=== PATIENT | male | born 1970 | race Hispanic/Latino ===

== ENCOUNTER 2018-07-19 18:43 | Emergency (ER) | payer OTHER | END 2018-07-19 19:07 | disposition home or self-care (01) | LOC: ERS 18:43 | DX: S91.011D Laceration without foreign body, right ankle, subsequent encounter (principal); E11.9 Type 2 diabetes mellitus without complications; E78.5 Hyperlipidemia, unspecified; I10 Essential (primary) hypertension ==

== ENCOUNTER 2025-05-27 14:55 | Inpatient (IN) | payer OTHER, SELFPAY ==
[~2025-05-27 14:55] MED LIST: Iopamidol-370 76% 500 ML MDV (1 ML CHARGE) ONE
[2025-05-27 17:49] LABS: #Basophils 0.05 10x3/uL (0.0-0.2); #Eosinophils 0.04 10x3/uL (0.0-0.7); #Monocytes 1.39 10x3/uL (0.11-0.59); #Neutrophils 18.10 10x3/uL (1.40-6.50); %Basophils 0.2 % (0.0-1.0); %Eosinophils 0.2 % (0.0-10.0); %Lymphocytes 7.4 % (21.0-51.0); %Monocytes 6.4 % (0.0-10.0); %Neutrophils 83.0 % (42.0-75.0); Hematocrit 30.5 % (42.0-52.0); Hemoglobin 10.4 g/dL (14.0-18.0); Mean Corpuscular Hemoglobin 33.0 pg (27.0-31.0); Mean Corpuscular Volume 96.8 fL (78.0-98.0); Platelet Count 426 10x3/uL (130-400); Red Blood Cell (RBC) Count 3.15 mill/uL (4.70-6.10); White Blood Cell (WBC) Count 21.81 10x3/uL (4.8-10.8)
[2025-05-27 18:05] LABS: ALT (SGPT) 12 U/L (Less than 45); AST (SGOT) 34 U/L (11-34); Albumin 2.1 g/dL (3.1-4.5); Alkaline Phosphatase 202 U/L (40-110); Anion Gap 15 mmol/L (10-20); BUN (Urea Nitrogen) 11 mg/dL (8.4-25.7); Bilirubin, Total 0.8 mg/dL (0.3-1.2); Calc. Creatinine Clearance 0 mL/min (70-130); Calcium 8.7 mg/dL (7.8-10.44); Carbon Dioxide 23 mmol/L (22-29); Chloride 100 mmol/L (98-107); Globulin 4.3 g/dL (2.4-3.5); Glucose 186 mg/dL (70-105); Lipase 10 U/L (8-78); Potassium 3.9 mmol/L (3.5-5.1); Sodium 134 mmol/L (136-145)
[2025-05-27] MEDS ORDERED: Ketorolac Tromethamine 30 MG (1 mL) VIAL ONE (18:45)
[2025-05-27] MEDS ORDERED: Ondansetron PF 4 MG/2 ML Vial ONE (18:45)
[2025-05-27] MEDS ORDERED: VANCOMYCIN 2 GRAM/400 ML BAG 400 ML ONE (21:04)
[2025-05-27] MEDS ORDERED: hydrALAZINE 20 MG/ML VIAL SLOW IVP PRN (22:02)
[2025-05-27] MEDS ORDERED: Methocarbamol 500 MG TAB PO PRN (22:02)
[2025-05-27] MEDS ORDERED: Glucagon 1 MG/ML KIT IM PRN (22:02)
[2025-05-27] MEDS ORDERED: Dextrose 50% Abboject 50 ML SYRINGE SLOW IVP PRN (22:02)
[2025-05-27] MEDS ORDERED: Ondansetron PF 4 MG/2 ML Vial IVP PRN (22:02)
[2025-05-27] MEDS ORDERED: Acetaminophen 325 MG TAB PO PRN (22:02)
[2025-05-28 02:37] VITALS: BMI 26.9
[2025-05-28 04:13] LABS: #Basophils 0.07 10x3/uL (0.0-0.2); #Eosinophils 0.15 10x3/uL (0.0-0.7); #Monocytes 1.32 10x3/uL (0.11-0.59); #Neutrophils 15.52 10x3/uL (1.40-6.50); %Basophils 0.4 % (0.0-1.0); %Eosinophils 0.8 % (0.0-10.0); %Lymphocytes 6.6 % (21.0-51.0); %Monocytes 7.0 % (0.0-10.0); %Neutrophils 81.9 % (42.0-75.0); Hematocrit 26.2 % (42.0-52.0); Hemoglobin 9.4 g/dL (14.0-18.0); Mean Corpuscular Hemoglobin 33.7 pg (27.0-31.0); Mean Corpuscular Volume 93.9 fL (78.0-98.0); Platelet Count 395 10x3/uL (130-400); Red Blood Cell (RBC) Count 2.79 mill/uL (4.70-6.10); White Blood Cell (WBC) Count 18.95 10x3/uL (4.8-10.8)
[2025-05-28 04:30] LABS: ALT (SGPT) 9 U/L (Less than 45); AST (SGOT) 23 U/L (11-34); Albumin 1.9 g/dL (3.1-4.5); Alkaline Phosphatase 166 U/L (40-110); Anion Gap 15 mmol/L (10-20); BUN (Urea Nitrogen) 12 mg/dL (8.4-25.7); Bilirubin, Total 0.8 mg/dL (0.3-1.2); Calc. Creatinine Clearance 159 mL/min (70-130); Calcium 8.2 mg/dL (7.8-10.44); Carbon Dioxide 21 mmol/L (22-29); Chloride 104 mmol/L (98-107); Globulin 3.5 g/dL (2.4-3.5); Glucose 139 mg/dL (70-105); Potassium 3.6 mmol/L (3.5-5.1); Sodium 136 mmol/L (136-145)
[2025-05-28] MEDS: Senokot S 8.6-50 MG TAB PO SCH (10:36)
[2025-05-28] MEDS ORDERED: fentaNYL PF 100 MCG/2 ML SYRINGE ONE ×3 (11:51→15:14)
[2025-05-28] MEDS ORDERED: Lidocaine 1% PF 5 ML VIAL ONE (11:51)
[2025-05-28] MEDS ORDERED: PROPOFOL 20 ML ONE (11:51)
[2025-05-28] MEDS ORDERED: Rocuronium Bromide 10 MG/ML (10ML VIAL) ONE (11:51)
[2025-05-28] MEDS ORDERED: Ondansetron PF 4 MG/2 ML Vial ONE ×2 (11:51→12:57)
[2025-05-28] MEDS ORDERED: Lidocaine 2% 6 ML (Jelly) SYR ONE (11:55)
[2025-05-28] MEDS ORDERED: Bupivacaine 0.25% HCL 30 ML VIAL ONE (12:09)
[2025-05-28] MEDS ORDERED: SUCCINYLCHOLINE/SOD CL,ISO/PF 200 MG/10 ML SYRINGE FS ONE (12:43)
[2025-05-28] MEDS ORDERED: PHENYLEPHRINE-NS 100 MCG/ML 10 ML SYRINGE ONE (12:57)
[2025-05-28] MEDS ORDERED: Ketorolac Tromethamine 30 MG (1 mL) VIAL ONE (12:57)
[2025-05-28] MEDS ORDERED: SUGAMMADEX SODIUM 200 MG/2 ML VIAL ONE ×2 (15:02→15:04)
[2025-05-28] MEDS: diphenhydrAMINE 25 MG CAP PO PRN (20:28)
[2025-05-29 05:19] LABS: #Basophils Less than 0.03 10x3/uL (0.0-0.2); #Eosinophils Less than 0.03 10x3/uL (0.0-0.7); #Monocytes 0.72 10x3/uL (0.11-0.59); #Neutrophils 11.88 10x3/uL (1.40-6.50); %Basophils 0.1 % (0.0-1.0); %Eosinophils 0.0 % (0.0-10.0); %Lymphocytes 6.9 % (21.0-51.0); %Monocytes 5.1 % (0.0-10.0); %Neutrophils 85.0 % (42.0-75.0); Hematocrit 26.8 % (42.0-52.0); Hemoglobin 9.0 g/dL (14.0-18.0); Mean Corpuscular Hemoglobin 33.2 pg (27.0-31.0); Mean Corpuscular Volume 98.9 fL (78.0-98.0); Platelet Count 431 10x3/uL (130-400); Red Blood Cell (RBC) Count 2.71 mill/uL (4.70-6.10); White Blood Cell (WBC) Count 14.00 10x3/uL (4.8-10.8)
[2025-05-29 05:34] LABS: ALT (SGPT) 11 U/L (Less than 45); AST (SGOT) 32 U/L (11-34); Albumin 1.8 g/dL (3.1-4.5); Alkaline Phosphatase 210 U/L (40-110); Anion Gap 10 mmol/L (10-20); BUN (Urea Nitrogen) 16 mg/dL (8.4-25.7); Bilirubin, Total 0.4 mg/dL (0.3-1.2); Calc. Creatinine Clearance 137 mL/min (70-130); Calcium 8.2 mg/dL (7.8-10.44); Carbon Dioxide 23 mmol/L (22-29); Chloride 104 mmol/L (98-107); Globulin 3.4 g/dL (2.4-3.5); Glucose 307 mg/dL (70-105); Potassium 4.3 mmol/L (3.5-5.1); Sodium 133 mmol/L (136-145)
[2025-05-29] MEDS: Enoxaparin 40 MG (0.4 mL) SYRINGE SC SCH (08:17)
[2025-05-29 12:15] VITALS: BP 158/72; TEMP 98.3
[2025-05-29] MEDS ORDERED: Amoxicillin/Potassium Clav 875 MG TAB PO SCH (21:00)
[2025-05-31] MEDS ORDERED: FLU (Fluarix Triv) 25-26 (6MOS UP)/PF 45 MCG/0.5 ML Syringe IM ONE (09:00)
== END 2025-05-29 16:29 | disposition home or self-care (01) | DRG 853 ==
LOC: ERS 14:55 → ERHOLD 22:16 → SURG B 23:18 → SURG A 05-28 11:56 → SURG B 05-28 18:06
PROVIDERS: ADMIT Surgery; ATTEND Surgery
PROC: 3E03329 Introduction of Other Anti-infective into Peripheral Vein, Percutaneous Approach (ICD-10-PCS; 2025-05-27)
PROC: 0FT44ZZ Resection of Gallbladder, Percutaneous Endoscopic Approach (ICD-10-PCS; principal; 2025-05-28)
PROC: 0W9G40Z Drainage of Peritoneal Cavity with Drainage Device, Percutaneous Endoscopic Approach (ICD-10-PCS; 2025-05-28)
PROC: 8E0W4CZ Robotic Assisted Procedure of Trunk Region, Percutaneous Endoscopic Approach (ICD-10-PCS; 2025-05-28)
PROC: BF52200 Other Imaging of Gallbladder using Fluorescing Agent, Indocyanine Green Dye, Intraoperative (ICD-10-PCS; 2025-05-28)
DX: A41.9 Sepsis, unspecified organism (principal); K65.1 Peritoneal abscess; K75.0 Abscess of liver; J90 Pleural effusion, not elsewhere classified; J98.11 Atelectasis; K80.00 Calculus of gallbladder with acute cholecystitis without obstruction; K82.A2 Perforation of gallbladder in cholecystitis; I10 Essential (primary) hypertension; R65.20 Severe sepsis without septic shock; E78.00 Pure hypercholesterolemia, unspecified; F10.90 Alcohol use, unspecified, uncomplicated; E11.65 Type 2 diabetes mellitus with hyperglycemia; Z79.899 Other long term (current) drug therapy; Z71.6 Tobacco abuse counseling; Z98.890 Other specified postprocedural states; F17.210 Nicotine dependence, cigarettes, uncomplicated
CPT/HCPCS: 36415; 36416; 74177; 76705; 80053; 83036; 83690; 85025; 87040; 87070; 87077; 87186; 87205; 88304; 96365; 96366; 96367; 96375; C1894; J0169; J0665; J1100; J1650; J1815; J1885; J2250; J2405; J2543; J2704; J3010; J3375; J7030; J7120; Q9967; S2900